=== PATIENT | female | born 1985 | race Asian ===

== ENCOUNTER → 2020-09-09 11:47 | Outpatient (BNVA) | payer OTHER, SELFPAY | PROVIDERS: PCP Internal Medicine; Referring Provider Internal Medicine; Visit Provider Surgery | DX: E66.3 Overweight (principal); Z68.28 Body mass index [BMI] 28.0-28.9, adult; K21.9 Gastro-esophageal reflux disease without esophagitis; Z98.84 Bariatric surgery status; Z71.3 Dietary counseling and surveillance | CPT/HCPCS: 99214 ==

== ENCOUNTER → 2020-11-12 11:18 | Outpatient (BNVA) | payer OTHER, SELFPAY | PROVIDERS: PCP Internal Medicine; Referring Provider Internal Medicine; Visit Provider Surgery | DX: E66.3 Overweight (principal); K21.9 Gastro-esophageal reflux disease without esophagitis; Z68.29 Body mass index [BMI] 29.0-29.9, adult; Z98.84 Bariatric surgery status | CPT/HCPCS: 99212 ==

== ENCOUNTER → 2021-01-02 09:34 | Outpatient (BNVA) | payer OTHER, SELFPAY | PROVIDERS: PCP Internal Medicine; Visit Provider Surgery | DX: E66.3 Overweight (principal); Z68.29 Body mass index [BMI] 29.0-29.9, adult | CPT/HCPCS: 99212 ==

== ENCOUNTER 2021-03-04 11:01 | Outpatient (RCR) | payer OTHER, SELFPAY | END 2021-08-12 08:29 | disposition home or self-care (01) | LOC: HO.OT 11:01 | PROVIDERS: PCP Nurse Practitioner Family; Visit Provider Nurse Practitioner Family | DX: I89.0 Lymphedema, not elsewhere classified (principal) | CPT/HCPCS: 97166 ==

== ENCOUNTER → 2021-03-07 14:48 | Outpatient (BNVA) | payer OTHER, SELFPAY | PROVIDERS: PCP Nurse Practitioner Family; Visit Provider Surgery | DX: E66.9 Obesity, unspecified (principal); Z68.30 Body mass index [BMI] 30.0-30.9, adult | CPT/HCPCS: 99212 ==